=== PATIENT | female | born 1980 | race Caucasian/White ===

== ENCOUNTER 2021-09-28 20:28 | Emergency (ER) | payer OTHER, SELFPAY ==
--- NOTE | 2021-09-28 20:47 | ED.ALCOHOL ---
HPI - Alcohol General Chief Complaint: Nausea/Vomiting/Diarrhea Stated Complaint: sick to stomach, headache, body aches Source: patient and RN notes reviewed Mode of arrival: ambulatory Limitations: no limitations History of Present Illness HPI narrative: patient states she is trying to detox from alcohol. she states that she has been trying to cut back on her alcohol Intake and that when she starts to slow down on her alcohol that is when she started retching and vomiting. She does say that this feels little different. She does not know if she has been in contact with anyone with COVID. She smokes marijuana. Apparently is homeless. Drinks a 5th of vodka per day. complaint: alcohol withdrawal Last drink: just [employer] Amount of alcohol consumed: Fifth of vodka Or more per day Chronic alcohol use: Yes Recent trauma: No Associated symptoms: nausea and vomiting Treatments prior to arrival: none Related Data Allergies Allergy/AdvReac Type Severity Reaction Status Date / Time No Known Allergies Allergy Verified 09/28/21 20:44 Review of Systems Review of Systems: All systems reviewed & are unremarkable except as noted in HPI and below Musculoskeletal: Musculoskeletal: Reports myalgias Neurologic: Reports headache(s) PMFSH Past Medical History Medical History (Updated 09/28/21 @ 22:16 by Angus Ortega MD) Alcohol abuse Anxiety and depression Social History Social History (Updated 09/28/21 @ 22:18 by Angus Ortega MD) Alcohol intake: current Alcohol use details: heavy daily drinker Substance use: current Substance use type: marijuana Exam Const: General: no acute distress, alert and ill appearing acutely Nutritional Appearance: well nourished and thin Orientation/consciousness: patient oriented x3 Other: Nurse in room during examination. HENMT: Head: normal to inspection Ears: external ears normal Face and sinus: normal facial exam Mouth: Yes dry mucous membranes Eyes: Conjunctivae: conjunctivae normal Pupils: Equal, round and reactive pupils present EOM: EOMs intact bilaterally Neck: Neck: normal visual inspection Resp: Effort & Inspection: normal respiratory effort Auscultation: clear to auscultation bilaterally Cardio: Rate: regular rate Rhythm: regular rhythm GI: GI Palp: Yes Soft to palpation and Yes Tenderness to palpation present (GI) ( Soreness in the infracostal region with deep palpation) Back/Spine/Pelvis: Cervical Spine: cervical ROM normal Thoracic/Lumbar Spine: thoraco-lumbar ROM normal Skin: General skin exam: normal color Rashes: no rashes Neuro: General: patient oriented x3, moves all extremities, no meningeal signs, no focal motor deficits and CN's II-XI intact bilaterally Speech: normal speech Extrem: General: normal to inspection and no clubbing, cyanosis or edema Psych: Appearance: grossly normal and well kempt Mental Status: mental status grossly normal Affect: normal affect Attitude: cooperative Thought content: Yes Normal thought content present Course Vital Signs Vital signs: Vital Signs Temperature 36.1 C L 09/28/21 20:49 Pulse Rate 96 09/28/21 20:49 Respiratory Rate 16 09/28/21 20:49 Blood Pressure 127/104 H 09/28/21 20:49 Pulse Oximetry 95 09/28/21 20:49 Temperature 36.1 C L 09/28/21 20:49 Pulse Rate 72 09/28/21 22:26 Respiratory Rate 18 09/28/21 22:26 Blood Pressure 127/104 H 09/28/21 20:49 Pulse Oximetry 99 09/28/21 22:26 MDM - Alcohol Lab Data Result diagrams: 09/28/21 20:59 09/28/21 20:59 Labs: Lab Results 09/28/21 09/28/21 09/28/21 Range/Units 20:59 20:59 20:59 WBC 3.5 L (4.8-10.8) K/mm3 RBC 4.79 (4.20-5.40) M/mm3 Hgb 12.1 (12.0-15.0) g/dL Hct 37.6 (35.0-49.0) % MCV 78.5 (78.0-102.0) fL MCH 25.3 L (27.0-31.0) pg MCHC 32.2 (32.0-36.0) g/dL RDW 18.6 H (11.6-14.4) % Plt Count 323 (150-420) K/mm3 MPV 9.9 (
[2021-09-28 20:49] VITALS: BP 127/104; PULSE 96; RESP 16; TEMP 36.1; O2SAT 95
[2021-09-28] MEDS: PROMETHAZINE HCL 25 MG/ML AMPUL IM (20:49)
[2021-09-28 21:04] LABS: Hematocrit 37.6 % (35.0-49.0); Hemoglobin 12.1 g/dL (12.0-15.0); Mean Corpuscular HGB Conc 32.2 g/dL (32.0-36.0); Mean Corpuscular Hemoglobin 25.3 pg (27.0-31.0); Mean Corpuscular Volume 78.5 fL (78.0-102.0); Mean Platelet Volume 9.9 fl (9.2-11.8); Platelet Count Result 323 K/mm3 (150-420); Red Blood Count 4.79 M/mm3 (4.20-5.40); Red Cell Distribution Width 18.6 % (11.6-14.4); White Blood Count 3.5 K/mm3 (4.8-10.8)
[2021-09-28] MEDS: ONDANSETRON HCL ODT 4 MG TABLET PO (21:07)
[2021-09-28] MEDS: LACTATED RINGERS 1,000 ML 999 ML IV CONT (21:14)
[2021-09-28 21:20] LABS: Alanine Aminotransferase 46 U/L (14-59); Albumin Level 4.1 g/dL (3.4-5.0); Alkaline Phosphatase 86 U/L (46-116); Anion Gap 16 mmol/L (8-16); Aspartate Amino Transferase 39 U/L (15-37); Bilirubin,Total 0.2 mg/dL (0.00-1.00); Blood Urea Nitrogen 7 mg/dL (7-18); Calcium 8.6 mg/dL (8.5-10.1); Carbon Dioxide 24 mmol/L (21-32); Chloride 102 mmol/L (98-108); Estimated CRCL calculation 65 ml/min; Estimated Glomerular Filt Rate > 60; Glucose 99 mg/dL (70-99); Magnesium 2.7 mg/dL (1.8-2.4); Osmolality Calculated 292 mOsm/kg (285-295); Sodium 142 mmol/L (136-145); Total Protein 8.4 g/dL (6.4-8.2)
[2021-09-28 21:22] LABS: CRP < 0.2 mg/dL (0.0-0.9)
[2021-09-28 21:35] LABS: Band Neutrophils Percent 0 % (0-6); Basophils Percent Manual 0 % (0-1); Eosinophils Absolute Manual 0.07 K/mm3 (0.02-0.5); Eosinophils Percent Manual 2 % (1-6); Lymphocytes Absolute Manual 2.27 K/mm3 (1.1-4.5); Lymphocytes Percent Manual 65 % (18-44); Monocytes Absolute Manual 0.31 K/mm3 (0.1-0.90); Monocytes Percent Manual 9 % (3-9); Neutrophils Absolute Manual 0.84 K/mm3 (1.7-7.2); Neutrophils Percent Manual 24 % (46-73); Platelet Estimate Adequate (Adequate); Total Cells Counted 100
[2021-09-28 21:39] LABS: SARS-CoV-2 RNA PCR Positive (Negative)
[2021-09-28 21:54] LABS: Ethanol 292 mg/dL (0-6)
--- NOTE | 2021-09-28 21:55 | PC.NURSE ---
ERP notifed of patient's critical ETOH level of 292
--- NOTE | 2021-09-28 22:01 | PC.NURSE ---
Exam for Dr Jordan barnes
[2021-09-28 22:04] LABS: Add Urine Microscopic? YES; Appearance Urine Clear (Clear); Bilirubin Urine Negative (Negative); Blood Urine 2+ (Negative); Color Urine Light Yellow (Yellow); Glucose Urine UA Negative (Negative); Ketones Urine Negative (Negative); Leukocyte Esterase Ur Negative LEU/UL (Negative); Nitrate Urine Negative (Negative); Protein Urine Negative (Negative); Specific Grav Ur <= 1.005 (1.010-1.020); Urobilinogen Urine 0.2 mg/dL (0.2-1.0); pH Urine 6.5 (5.0-8.0)
[2021-09-28 22:09] LABS: RBC Urine 0-2 /hpf (0-2); Squamous Epithelial Cell Urine Few /hpf (Few); WBC Urine 0-3 /hpf (0-3)
[2021-09-28 22:10] LABS: Bacteria Urine Trace /hpf
[2021-09-28 22:11] LABS: Amphetamine Screen Urine Negative (Negative); Barbiturate Screen Urine Negative (Negative); Benzodiazepines Screen Urine Negative (Negative); Cannabinoid Screen Urine Positive (Negative); Cocaine Screen Urine Negative (Negative); Methadone Screen Urine Negative (Negative); Opiate Screen Urine Negative (Negative); Phencyclidine Screen Urine Negative (Negative)
[2021-09-28 22:26] VITALS: PULSE 72; RESP 18; O2SAT 99
== END 2021-09-28 22:27 | disposition home or self-care (01) ==
PROVIDERS: Emergency Provider Emergency Medicine; PCP Internal Medicine
DX: U07.1 COVID-19 (principal); F10.10 Alcohol abuse, uncomplicated
CPT/HCPCS: 36415; 80053; 80307; 81001; 83735; 85025; 86140; 96360; 96372; 99283; A9270; C9803; J2550; J7120; U0003; U0005

== ENCOUNTER 2025-08-17 10:34 | Outpatient (CLI) | payer OTHER, SELFPAY ==
[2025-08-17 11:00] LABS: Hematocrit 39.4 % (37.0-47.0); Hemoglobin 12.8 g/dL (12.0-15.0); Immature Granulocyte Percent A 0.2 % (0-0.5); Immature Platelet Fraction Pct 4.7 % (0.9-11.2); Lymphocytes Absolute Auto 2.23 K/mm3 (0.9-3.2); Mean Corpuscular HGB Conc 32.5 g/dl (32-36); Mean Corpuscular Hemoglobin 30.5 pg (26-34); Mean Corpuscular Volume 94.0 fl (80-100); Nucleated Red Blood Cells Absolute Auto 0.000 K/mm3 (0.0-0.012); Nucleated Red Blood Cells Perc 0.0 % (0.0-0.2); Platelet Count Result 292 k/mm3 (150-375); Red Blood Count 4.19 M/mm3 (4.2-5.4); White Blood Count 5.2 K/mm3 (4.5-10.0)
[2025-08-17 11:08] LABS: Hemoglobin A1C 5.2 % (<5.7)
[2025-08-17 11:24] LABS: Alanine Aminotransferase 16 U/L (6-35); Albumin Level 4.4 g/dL (3.5-5.1); Alkaline Phosphatase 64 U/L (38-126); Anion Gap 4 mmol/L (4-12); Aspartate Amino Transferase 26 U/L (14-36); Bilirubin,Total 0.5 mg/dL (0.2-1.3); Blood Urea Nitrogen 11 mg/dL (7-17); Calcium 9.1 mg/dL (8.4-10.2); Carbon Dioxide 28 mmol/L (22-30); Chloride 105 mmol/L (98-107); Cholesterol 256 mg/dL (0-200); Estimated Glomerular Filt Rate > 60; Glucose 99 mg/dL (65-110); HDL Direct 84 mg/dL; Potassium 3.8 mmol/L (3.4-5.0); Sodium 137 mmol/L (137-145); Total Protein 7.9 g/dL (6.3-8.2); Triglycerides 61 mg/dL (<150)
[2025-08-17 11:40] LABS: Beta HCG Quantitative 3.03 mIU/ML
[2025-08-17 11:53] LABS: Thyroid Stimulating Hormone Reflex 1.850 uIU/mL (0.465-4.68)
[2025-08-18 07:09] LABS: FSH 95.7 mIU/mL (.)
== END 2025-08-17 10:35 | disposition home or self-care (01) ==
LOC: ANHLAB 10:38
PROVIDERS: PCP Internal Medicine; Visit Provider Internal Medicine
DX: Z13.1 Encounter for screening for diabetes mellitus (principal); N95.1 Menopausal and female climacteric states; N92.6 Irregular menstruation, unspecified; R53.83 Other fatigue; Z13.220 Encounter for screening for lipoid disorders
CPT/HCPCS: 36415; 80053; 80061; 83001; 83036; 84443; 84702; 85025; 85055